=== PATIENT | female | born 1940 | race Caucasian/White ===

== ENCOUNTER 2019-01-21 11:11 | Inpatient (IN) ==
[2019-01-15 16:30] LABS: Appearance,Urine HAZY; Bacteria,Urine 0 /hpf (0); Bilirubin,Urine NEG (NEG); Color,Urine YELLOW; Culture Indicated,Urine YES; Glucose,Urine (UA) NEGATIVE (NEG); Ketones,Urine NEG (NEG); Leukocyte Esterase,Urine 250 /uL (NEG); Mucus,Urine FEW /hpf (0); Nitrate,Urine NEG (NEG); Protein,Urine NEG (NEG); Specific Gravity,Urine 1.018 (1.000-1.035); Urine Blood NEG mg/dL (<0.03); Urine RBC 2 /hpf (0-1); Urine Squamous Epithelial Cell 4 /hpf (0-4); Urine Transitional Epi Cells 2 /hpf (0-2); Urine WBC 31 /hpf (0-4); Urobilinogen,Urine NEG (NEG)
[2019-01-15 16:53] LABS: Basophils # (Auto) 0 K/mcL (0.0-0.3); Basophils % (Auto) 0.5 % (0.0-2.0); Eosinophils # (Auto) 0.1 K/mcL (0.0-0.7); Eosinophils % (Auto) 1.9 % (0.0-7.0); Granulocytes % (Auto) 68.5 % (38.0-78.0); Hemoglobin 16.2 g/dL (12.0-15.0); Lymphocytes # (Auto) 1.4 K/mcL (1.5-4.8); Lymphocytes % (Auto) 20.1 % (15.5-49.0); Mean Cell Volume 98.2 fL (80.0-100.0); Mean Corpuscular HGB Conc 32.5 g/dL (31.0-36.0); Mean Platelet Volume 7.8 fL (7.4-10.4); Monocytes # (Auto) 0.6 K/mcL (0.1-0.9); Platelet Count 217 K/mcL (140-440); RBC 5.09 M/mcL (4.00-5.20); Red Cell Distribution Width 13.4 % (11.5-14.5); WBC 6.9 K/mcL (4.5-11.0)
[2019-01-15 17:05] LABS: Blood Urea Nitrogen 20 mg/dl (8-23); Calcium 9.4 mg/dl (8.6-10.4); Carbon Dioxide 23 mmol/L (22-30); Chloride 99 mmol/L (96-108); Glomerular Filtration Rate 43; Glucose 82 mg/dL (70-105)
[2019-01-15 17:31] LABS: INR 1.2 (0.9-1.1); Prothrombin Time 14.7 sec (11.9-14.5)
[~2019-01-21 11:11] MED LIST: ACETAMINOPHEN 500 MG TABLET PO SCH; CELECOXIB 200 MG CAPSULE PO SCH; GENTAMICIN SULFATE 800 MG/20 ML VIAL IR ONE; PREGABALIN 75 MG CAPSULE PO SCH; ceFAZolin 2 GM in DEXTROSE 5% IN WATER 50 ML IV SCH; oxyCODONE 10 MG TAB.ER.12H PO SCH
[2019-01-21] MEDS ORDERED: IPRATROPIUM/ALBUTEROL 3 ML AMPUL.NEB NEB PRN ×2 (12:00→13:43)
[2019-01-21] MEDS ORDERED: SCOPOLAMINE 1 PATCH PATCH TOPICAL PRN (12:00)
[2019-01-21] MEDS ORDERED: GLYCOPYRROLATE 0.2 MG/ML VIAL IV ONE (12:35)
[2019-01-21] MEDS ORDERED: PROPOFOL 200 MG/20 ML VIAL IV ONE (12:35)
[2019-01-21] MEDS ORDERED: ROCURONIUM 10 MG/ML ML IV ONE (12:35)
[2019-01-21] MEDS ORDERED: ROPIVACAINE HCL/PF 30 ML VIAL IJ ONE (12:35)
[2019-01-21] MEDS ORDERED: ONDANSETRON 4 MG/2 ML VIAL IV ONE (12:35)
[2019-01-21] MEDS ORDERED: fentaNYL 100 MCG/2 ML VIAL IV ONE (12:35)
[2019-01-21] MEDS ORDERED: PHENYLEPHRINE 10 MG/ML VIAL IV ONE (12:35)
[2019-01-21] MEDS ORDERED: MIDAZOLAM 2 MG/2 ML VIAL IV ONE (12:35)
[2019-01-21] MEDS ORDERED: KETAMINE 100 MG/ML ML IV ONE (12:35)
[2019-01-21] MEDS ORDERED: TRANEXAMIC ACID 1,000 MG/10 ML VIAL IV ONE ×2 (12:35→13:56)
[2019-01-21] MEDS ORDERED: LIDOCAINE HCL/PF 100 MG/5 ML SYRINGE IV ONE (12:35)
--- NOTE | 2019-01-21 12:48 | Brief Operative Note ---
Date of procedure: 01/21/19 Pre-op diagnosis: Right shoulder rca with bicep tear Post-op diagnosis: same Procedure: Rgiht reverse tsa and bicep tenodesis Grafts/Implants: Yes Anesthesia: BRITTNEY Surgeon: Justyn Aggarwal Nutrition Aide: Guillermo Romero Estimated blood loss (cc): 50 Specimens Removed/Pathology: none sent Condition: stable Disposition: PACU
[2019-01-21] MEDS ORDERED: fentaNYL 100 MCG/2 ML VIAL IV PRN (13:43)
[2019-01-21] MEDS ORDERED: METHOCARBAMOL 1,000 MG/10 ML VIAL IV PRN (13:43)
[2019-01-21] MEDS ORDERED: KETOROLAC 15 MG/ML VIAL IV PRN ×2 (13:43→13:56)
[2019-01-21] MEDS ORDERED: ONDANSETRON 4 MG/2 ML VIAL IV PRN ×2 (13:43→13:56)
[2019-01-21] MEDS ORDERED: METOPROLOL TARTRATE 5 MG/5 ML VIAL IV PRN (13:43)
[2019-01-21] MEDS ORDERED: LACTATED RINGERS 1,000 ML IV SCH (13:45)
[2019-01-21] MEDS ORDERED: ACETAMINOPHEN 325 MG TABLET PO PRN (13:56)
[2019-01-21] MEDS ORDERED: MAGNESIUM HYDROXIDE 30 ML ORAL.SUSP PO PRN (13:56)
[2019-01-21] MEDS ORDERED: TEMAZEPAM 15 MG CAPSULE PO PRN (13:56)
[2019-01-21] MEDS ORDERED: BISACODYL 10 MG SUPP.RECT PR PRN (13:56)
[2019-01-21] MEDS ORDERED: HYDROmorphone 2 MG/ML VIAL IV PRN (13:56)
[2019-01-21] MEDS ORDERED: POLYETHYLENE GLYCOL 3350 17 GM PACKET PO PRN (13:56)
[2019-01-21] MEDS ORDERED: BENZOCAINE/MENTHOL 1 LOZENGE PO PRN (13:56)
[2019-01-21] MEDS ORDERED: FLEETS ADULT ENEMA PR PRN (13:56)
[2019-01-21] MEDS ORDERED: traMADol 50 MG TABLET PO PRN (13:58)
[2019-01-21] MEDS ORDERED: HYDROCHLOROTHIAZIDE 12.5 MG CAPSULE PO PRN (13:58)
--- NOTE | 2019-01-21 14:22 | Operative Note ---
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 PROCEDURE: Right reverse total shoulder with biceps tenodesis. SURGEON: Justyn Aggarwal M.D. MANAGER SAP: Guillermo Romero PA-C. The PA's assistance was required for the safe and efficient completion of the entire case. This provider's expertise and technical skill were required throughout the case. The PA assisted with preoperative coordination, intraoperative retraction, wound closure, dressing and splint application, as well as postoperative documentation and care coordination. ANESTHESIA: General LMA anesthesia. COMPLICATIONS: None. ESTIMATED BLOOD LOSS: About 100 mL. DESCRIPTION OF PROCEDURE: The patient was brought to the operating room and put to sleep with general LMA anesthesia. Once asleep, the patient had the right shoulder sterilely prepped and draped. A timeout was performed. We confirmed the operative site. Preop antibiotics and tranexamic acid were given. A deltopectoral interval was incised. We identified the cephalic vein which was retracted laterally. Once done, we then released the biceps tendon and repaired it to the pectoralis major with a #2 Ethibond suture. We released the subscap muscle and interval which was retracted medially. We dislocated the humeral head and made our neck cut using the alignment guide at 20 degrees of retroversion. Once done, we then subluxed the head posteriorly and identified the glenoid. We performed a 360-degree capsular release and labral release of the glenoid. We placed a pin centrally and reamed for a 32 mm ball. The glenoid was very osteopenic and small. We irrigated thoroughly. We then placed a central screw measuring 24 mm in length for the metaglene, three other screws which measured 28, 32 and 24 mm. All had good purchase. We placed a 32 mm concentric glenosphere, tapped into place. Once done, we then reamed up onto the humerus size 10. We trialed the size 10 with a neutral poly which fit very nicely. We then placed a small amount of cement on the final implant distally, and this was put into place. Proximal ingrowth was porous ingrowth. We then placed a standard-thickness poly and this reduced very nicely and had good range of motion. We irrigated thoroughly and then released the subscap. We closed the interval with 2-0 Vicryl and adhesive closure. The patient tolerated this well. Sterile bandage applied. Donjoy sling was fitted and given to the patient. NEIL:sascha Job ID: [id number] Doc ID: [id number] Justyn Aggarwal MD
[2019-01-21] MEDS: 0.45 % SODIUM CHLORIDE 1,000 ML IV SCH (15:20)
[2019-01-21] MEDS: HYDROcodone/APAP 10/325MG TABLET PO PRN ×2 (15:27→21:32)
--- NOTE | 2019-01-21 15:30 | XRay Report ---
CLINICAL INFORMATION: Post-OP Total Shoulder COMPARISON: None. FINDINGS: Total shoulder prostheses is anatomically aligned. No osseous abnormality. Periarticular soft tissue swelling as expected IMPRESSION: Negative Interpreted and Authenticated by: Rusty Saeed 01/21/19
[2019-01-21] MEDS: 0.9 % SODIUM CHLORIDE 10 ML SYRINGE IV SCH ×2 (15:31→20:38)
[2019-01-21] MEDS ORDERED: PROMETHAZINE 25 MG/ML VIAL IV PRN (17:45)
[2019-01-21] MEDS: METOCLOPRAMIDE 10 MG/2 ML VIAL IV SCH ×2 (17:52→23:29)
[2019-01-21] MEDS: ceFAZolin 1 GM VIAL IV SCH (20:36)
[2019-01-21] MEDS: APIXABAN 5 MG TABLET PO SCH (20:37)
[2019-01-21] MEDS: DOCUSATE SODIUM 100 MG CAPSULE PO SCH (20:38)
[2019-01-21] MEDS ORDERED: SIMVASTATIN 10 MG TABLET PO SCH (21:00)
[2019-01-21] MEDS ORDERED: SENNOSIDES 1 TABLET PO SCH (21:00)
[2019-01-21] MEDS ORDERED: METOPROLOL TARTRATE 25 MG TABLET PO SCH (21:00)
[2019-01-22] MEDS: 0.45 % SODIUM CHLORIDE 1,000 ML IV SCH (00:02)
[2019-01-22] MEDS: HYDROcodone/APAP 10/325MG TABLET PO PRN ×2 (04:20→09:05)
[2019-01-22] MEDS: ceFAZolin 1 GM VIAL IV SCH (04:20)
[2019-01-22] MEDS: METOCLOPRAMIDE 10 MG/2 ML VIAL IV SCH (04:44)
[2019-01-22] MEDS: 0.9 % SODIUM CHLORIDE 10 ML SYRINGE IV SCH (05:10)
--- NOTE | 2019-01-22 07:39 | Orthopedic Progress Note ---
Subjective Patient information: Note initiated : 01/22/19 at 7:38 am Service Date, if different from initiated Date: [] Patient: Guera Garcia 78 y/o F admitted on 01/21/19 for Right Reverse Total Shoulder Arthroplasty with. Chief Complaint: [Pt is stable this morning on post operative day 1 without any significant concerns or complaints. Patients vital signs have remained stable. Patients dressing is dry and is grossly intact from a ashley rovascular and motor standpoint. Patients 10 point ROS is otherwise negative. ] Objective Vital signs: Vital Signs Temp Pulse Resp BP BP BP Pulse Ox 01/22/19 04:24 98.0 F 73 20 121/68 92 01/21/19 23:31 98.1 F 72 18 123/60 93 01/21/19 19:06 97.8 F 85 20 137/74 96 01/21/19 18:00 70 18 134/81 96 01/21/19 17:35 73 145/86 94 01/21/19 17:05 74 124/78 01/21/19 16:35 133/89 90 01/21/19 16:05 138/83 91 01/21/19 15:35 72 135/82 92 01/21/19 15:20 73 18 145/86 94 01/21/19 15:01 70 20 134/81 96 01/21/19 14:57 96.2 F L 83 13 158/72 96 01/21/19 14:45 96.4 F L 81 13 149/69 96 01/21/19 14:40 84 16 153/56 97 01/21/19 14:35 80 12 160/69 96 01/21/19 14:30 83 17 157/71 157/71 97 01/21/19 14:25 81 13 148/58 97 01/21/19 14:20 80 14 154/66 97 01/21/19 14:15 96.8 F L 91 H 22 155/90 01/21/19 11:30 97.6 F 76 18 128/78 97 Intake and Output 01/21/19 01/22/19 01/22/19 21:59 05:59 13:59 Intake Total 1880 1350 Output Total 85 150 Balance 1795 1200 Intake: IV 1000 Sodium Chloride 0.45% 1,000 ml 1000 @ 100 mls/hr IV .Q10H [facility] Rx#: [id number] Oral 480 350 IV - Manual Only 1400 Output: Void Amount 150 Estimated Blood Loss 85 Other: Meal Dinner Percent of Meal Consumed 100% Feeding Ability Independent Urine Appearance Clear Clear Urine Color Dark Yellow Dark Yellow # Voids 1 Weight 167 lb 8 oz Intake & Output: Intake & Output 01/21/19 01/22/19 01/22/19 21:59 05:59 13:59 Intake Total 1880 1350 Output Total 85 150 Balance 1795 1200 Weight 167 lb 8 oz Intake: IV 1000 Sodium Chloride 0.45% 1,000 ml 1000 @ 100 mls/hr IV .Q10H [facility] Rx#: [id number] Oral 480 350 IV - Manual Only 1400 Output: Void Amount 150 Estimated Blood Loss 85 Other: Meal Dinner Percent of Meal Consumed 100% Feeding Ability Independent Urine Appearance Clear Clear Urine Color Dark Yellow Dark Yellow # Voids 1 Incision: Yes healing Incision clean and dry: Yes Dressing: Yes clean, Yes dry Weight bearing status: full Neurological exam IM: Yes motor sensory intact, Yes neurovascular intact Extremities exam IM: Yes Foot pink and warm, Yes neurovascular intact - Labs CBC & BMP: 01/15/19 13:40 01/15/19 13:40 Labs: Orthopedic Labs 01/15/19 13:40 PT 14.7 H INR 1.2 H APTT 33 01/15/19 13:40 Hgb 16.2 H Hct 50.0 H Assessment and Plan (1) History of reverse total replacement of shoulder joint The patient has been educated regarding dressing care, Physical Therapy recommendations, home exercises, restrictions, and follow up appointments. The patient has had all necessary DME prescribed. The patient has remained relatively stable during their hospital course. Leave Dermabond patch intact until followup Status: Acute
--- NOTE | 2019-01-22 07:41 | Discharge Summary ---
Ortho Discharge - TSA - Patient Instructions Diet: Regular Diet Activity: activity as tolerated, weight bearing as tolerated Total Shoulder Protocol: Leave immobilizer in place except for bathing and ROM. Abduction pillow. Continue to wear sling until seen by physician. Codman Pendulum : These exercises use momentum produced by your body to move your shoulder joint. Bend your knees and shift your weight to your front leg, then back, allowing your arm to swing in the same directions. Using the same technique, alternately shift your weight between your right and left legs, allowing your arm to swing from side to side. These exercises are also performed in counterclockwise and clockwise circular motions. Typically these exercises are performed several times per day, for a set number repetitions or minutes, such as 20 times in a row or 5 minutes at a time. Dressing Care: May shower in 2 days - Problem Maintenance (1) History of reverse total replacement of shoulder joint Status: Acute - Follow Up Plan Follow Up Appointments: Guillermo Romero PA-C [Physician [employer]el Roller Operator] - 02/07/19 10:50 am Disposition: Home, Self-Care Prognosis: Good Rehab Potential: Good I certify that the patient requires SNF services: No Overall status at discharge: patient is progressing back to baseline - Orders For Discharge Prescriptions: HYDROcodone/APAP 5/325MG [[place] 5-325Mg] 1 - 2 tab PO Q4HP PRN #30 tab PRN Reason: Pain HYDROcodone/APAP 5/325MG [[place] 5-325Mg] 1 - 2 tab PO Q4HP PRN #30 tab PRN Reason: Pain Additional Discharge Orders: Physical Therapy at Discharge - General Location: None Selected Physical Therapy at Discharge - TSA Location: None Selected Brace/Splint Location: None Selected
[2019-01-22] MEDS: APIXABAN 5 MG TABLET PO SCH (09:02)
[2019-01-22] MEDS: DOCUSATE SODIUM 100 MG CAPSULE PO SCH (09:02)
[2019-01-28] MEDS ORDERED: ALENDRONATE SODIUM 70 MG TABLET PO SCH (07:00)
== END 2019-01-22 11:10 | disposition home or self-care (01) | DRG 483 ==
LOC: MEDSUR 11:11
PROVIDERS: ADMIT Orthopaedic Surgery; ATTEND Orthopaedic Surgery